=== PATIENT | male | born 1935 | race Caucasian/White ===

== ENCOUNTER 2018-10-20 08:27 | Inpatient (IN) | payer MEDICARE ==
[2018-10-20] MEDS ORDERED: Adacel (T-DAP) 0.5 ML SYRINGE ONE (08:33)
[2018-10-20] MEDS ORDERED: Acetaminophen 500 MG TAB ONE (08:42)
[2018-10-20] MEDS ORDERED: Lidocaine 1% w/Epinephrine 1:100K 20 ML VIAL ONE (08:42)
[2018-10-20 09:13] LABS: INR-International Normal Ratio 1.9; PTT 32.6 SEC (22.9-36.1); Prothrombin Time 22.2 SEC (12.0-14.7)
[2018-10-20 09:18] LABS: #Basophils 0.1 thou/uL (0.0-0.2); #Eosinphils 0.1 thou/uL (0.0-0.7); #Lymphocytes 1.2 thou/uL (1.20-3.40); #Monocytes 0.4 thou/uL (0.11-0.59); #Neutrophils 6.1 thou/uL (1.40-6.50); %Basophils 0.8 % (0.0-1.0); %Eosinophils 1.8 % (0.0-10.0); %Lymphocytes 15.4 % (21.0-51.0); %Neutrophils 77.1 % (42.0-75.0); Hemoglobin 15.8 g/dL (14.0-18.0); Mean Corpuscular HGB CONC 32.8 g/dL (32.0-36.0); Mean Corpuscular Volume 88.4 fL (78.0-98.0); Mean Platelet Volume 7.7 fL (7.4-10.4); Platelet Count 198 thou/uL (130-400); RBC Distribution Width 12.5 % (11.5-14.5); Red Blood Cell (RBC) Count 5.45 mill/uL (4.70-6.10); White Blood Cell (WBC) Count 7.9 thou/uL (4.8-10.8)
[2018-10-20 09:23] LABS: ALT (SGPT) 14 U/L (8-55); AST (SGOT) 21 U/L (5-34); Albumin 3.6 g/dL (3.4-4.8); Alkaline Phosphatase 51 U/L (40-150); Anion Gap 14 mmol/L (10-20); BUN (Urea Nitrogen) 17 mg/dL (8.4-25.7); Bilirubin, Total 1.1 mg/dL (0.2-1.2); CK (CPK) 116 U/L (30-200); Calc. Creatinine Clearance 0 mL/min (70-130); Calcium 8.9 mg/dL (7.8-10.44); Carbon Dioxide 24 mmol/L (23-31); Chloride 102 mmol/L (98-107); Estimated GFR-MDRD 86; Glucose 149 mg/dL (83-110); Potassium 4.1 mmol/L (3.5-5.1); Protein, Total 6.6 g/dL (5.8-8.1); Sodium 136 mmol/L (136-145)
--- NOTE | 2018-10-20 10:10 | CT ---
CT OF THE BRAIN WITHOUT CONTRAST: Comparison: 08-18-11 History: Dizziness, fall with head trauma. Technique: Multiple contiguous axial images were obtained in a CT of the brain without contrast. FINDINGS: There are scattered hypodensities in the subcortical and periventricular white matter, likely seconda ry to small vessel ischemic disease. No large confluent infarction is seen. There is no evidence of h ydrocephalus, intracranial hemorrhage, or extraaxial fluid collection. The calvarium and overlying soft tissues are unremarkable. The visualized paranasal sinuses and masto id air cells are well aerated. IMPRESSION: No evidence of acute intracranial abnormality. POS: [facility]
[2018-10-20] MEDS ORDERED: Ondansetron PF 4 MG/2 ML Vial IVP PRN (10:51)
[2018-10-20] MEDS ORDERED: Sodium Chloride 0.9% 1,000 ML IV SCH ×2 (10:51→23:55)
[2018-10-20] MEDS ORDERED: Dextrose 5% in Water 1,000 ML IV PRN (10:51)
[2018-10-20] MEDS ORDERED: Dextrose 50% Abboject 50 ML SYRINGE SLOW IVP PRN (10:51)
[2018-10-20] MEDS ORDERED: Ondansetron ODT 4 MG TAB PO PRN (10:51)
[2018-10-20] MEDS ORDERED: Morphine 4 MG/ML VIAL SLOW IVP PRN (10:51)
[2018-10-20] MEDS ORDERED: hydrALAZINE 20 MG/ML VIAL SLOW IVP PRN (10:51)
--- NOTE | 2018-10-20 10:51 | RAD ---
LEFT HAND 3 VIEWS: HISTORY: Injury. Pain. COMPARISON: None. FINDINGS: There is intraarticular fracture of the radial styloid. No ulnar styloid fracture is appreciated. M ild degenerative disease of the thumb carpometacarpal joint as well as the scaphotrapezium trapezoida l joint. There is a mildly comminuted intraarticular fracture of the base of the 5th metacarpal. There is adj acent soft tissue swelling. Possible fracture of the hamate, although this is not well seen. There is ossification of the triangular fibrocartilage. Obliquely oriented fracture, intraarticular, of the middle finger metacarpal base. IMPRESSION: 1. Intraarticular fracture of the radial styloid without significant displacement. 2. Intraarticular fracture of the base of the small finger metacarpal at the carpometacarpal joint w ith possible nondisplaced fracture of the medial margin of the hamate. 3. Obliquely oriented intraarticular nondisplaced fracture of the metacarpal base middle finger. POS: [facility]
--- NOTE | 2018-10-20 10:56 | CT ---
CHEST, ABDOMEN, AND PELVIC CT SCAN WITH IV CONTRAST THORACIC SPINE CT SCAN WITH IV CONTRAST LIMITED LUMBAR SPINE CT SCAN WITH IV CONTRAST LIMITED: History: 83-year-old male with history of chest injury from a fall. FINDINGS: CT CHEST/ABDOMEN/PELVIS WITH IV CONTRAST: There are numerous healed left rib fractures with extensive associated deformity. There is some scatt ered linear and interstitial increased markings noted bilaterally, particularly in the mid and lower lung zones, nonspecific, possibly representing some chronic change or some subsegmental atelectasis o r be related to some dependent positioning. There is motion artifact through this region which lowers the sensitivity of this study. There is no evidence for pneumothorax or significant pleural effusion or pericardial effusion. Visualized liver, gallbladder, pancreas, spleen, adrenal glands are unremar kable and show no acute process. 6.8 cm right renal cyst. No free intraperitoneal fluid or evidence f or retroperitoneal hematoma. Very small fat containing umbilical hernia and bilateral small fat conta ining inguinal hernias. There is some slight heterogeneous urinary bladder wall thickening with a foc al nodular area of enhancement at the anterior dome of the liver, possibly a small bladder neoplasm. Colonic diverticulosis without acute diverticulitis. IMPRESSION: No significant acute post-traumatic process involving the chest, abdomen, or pelvis. Evidence for pos sible small enhancing bladder wall mass, follow up nonemergent cystoscopy in this regard should be co nsidered. Other findings as above. THORACIC SPINE CT SCAN WITH IV CONTRAST LIMITED: FINDINGS/IMPRESSION: Extensive thoracic spondylosis without acute fracture or dislocation. LUMBAR SPINE CT SCAN WITH IV CONTRAST LIMITED: FINDINGS/IMPRESSION: Lumbar spondylosis without acute fracture or dislocation. POS: [facility]
[2018-10-20] MEDS ORDERED: Morphine 2 MG/ML SYRINGE SLOW IVP PRN (12:42)
[2018-10-20 12:59] VITALS: BMI 31.1
--- NOTE | 2018-10-20 13:53 | CT ---
NONCONTRAST CT LEFT WRIST: 10/20/18 HISTORY: Injury after fall. Radiographic evaluation demonstrates fractures. FINDINGS: There is a minimally fracture involving the most distal aspect of the radial styloid proces s. There is a subtle nondisplaced fracture involving the mid and distal trapezium bone. There is also a subtle lucency involving the lateral aspect of the hamate bone suggesting a nondisplaced fracture. Th ere is tiny osseous fragments seen adjacent to the distal and lateral margin of the capitate bone con sistent with small fracture fragments and fracture of the capitate bone. A non-displaced fracture of the lunate bone is seen. There is a slightly displaced fracture involving the lateral aspect of the trapezoid bone. There is s light irregularity of the trapezium, but definitive fracture is difficult to delineate. There is a sl ightly intra-articular fracture involving the lateral aspect base of the fifth metacarpal a s well as a obliquely oriented and slightly fracture involving the base of the middle metac arpal with intra-articular extension and slight intra-articular gap and step-off of the fracture frag ment. There is subcutaneous edema about the wrist. Calcifications in the region of the triangular fibrocart ilage with calcifications also in the region of the scapholunate ligament. There is a subtle nondisplaced fracture of the lunate bone. IMPRESSION: 1. There is a slightly and displaced fracture of the radial styloid process. 2. Fractures involving multiple carpal bones including the trapezium, hamate, capitate, trapezoi d, lunate and questionably subtle fracture involving the trapezium bones. 3. Intra-articular fractures involving the base of the third and fifth metacarpals with intra-ar ticular extension of the fractures. 4. Calcifications in region of the triangular fibrocartilage and region of the scapholunate liga ment. 5. Subcutaneous edema. 6. Questionable tiny avulsion fracture at the lateral aspect base of the fourth metacarpal. 7. Above findings discussed with Dr. Delgado in the Emergency Department on 10/20/18 at 1118 ho urs. POS: [facility]
[2018-10-20] MEDS ORDERED: Acetaminophen 500 MG TAB PO PRN (13:54)
[2018-10-20] MEDS ORDERED: HYDROcodone/Acetaminophen 5/325 mg Tablet PO PRN ×2 (13:57)
--- NOTE | 2018-10-20 14:47 | HP ---
CONSULTATIONS: Hand Surgery, Dr. Martin. PRIMARY CARE PROVIDER: Dr. Rupert Rosales. HISTORY OF PRESENT ILLNESS: The patient is an 83-year-old man, who reportedly takes walks daily between a mile and a mild and a half, who states that lately he has become "more wobbly" towards the end of his walks. Today, when he was finishing his walks, he became unsteady and fell landing on his left outstretched hand and struck his head on the ground. The patient was brought to the emergency department at [facility], where he underwent evaluation and examination to include CT scans that revealed fractures to his left distal radius carpals and metacarpals. The patient's head CT was negative and the remainder of his scans were negative. There was a question of whether this was a syncopal event and we will ask his primary care provider to assist in evaluating this. ALLERGIES: NONE. CURRENT MEDICATIONS: 1. Xarelto. 2. Digoxin. 3. Carvedilol. 4. COQ10. 5. Hydrochlorothiazide. 6. Fish oil. PAST MEDICAL HISTORY: Atrial fibrillation, hypertension, and alcohol-induced cardiomyopathy. PAST SURGICAL HISTORY: None. SOCIAL HISTORY: The patient denies drug or tobacco use. Prior to 2011, he had extensive alcohol history, but has none since. Currently, lives independently at home. PHYSICAL EXAMINATION: VITAL SIGNS: Blood pressure 154/89, heart rate 84, respirations 18, oxygen saturation 92% on room air, and temperature is 97.9. GENERAL: The patient is resting comfortably in the bed on the stroke unit. He is awake, alert, and oriented x3. [place] Coma Scale is 15. HEENT: Head, normocephalic. The patient has a laceration that has been repaired above his left eyebrow. Eyes, extraocular motion intact. PERRLA bilaterally. Ears are atraumatic without discharge. Nose is atraumatic without discharge. Oropharynx is clear. NECK: Nontender. Trachea is midline. No JVD. CHEST: Clear to auscultation with good inspiratory and expiratory effort. HEART: Irregularly irregular consistent with his atrial fibrillation. ABDOMEN: Soft, flat, nontender with active bowel sounds. PELVIS: Stable. EXTREMITIES: Neurovascularly intact x4. Left upper extremity has a volar splint placed. Capillary refill, distal movement, and sensation are intact. BACK: Atraumatic and nontender. LABORATORY FINDINGS: White blood cell count 7.9, hemoglobin 15.8, hematocrit 48.2, and platelets 198. Sodium 136, potassium 4.1, chloride 102, CO2 of 24, BUN 17, creatinine 0.82, and glucose 149. LFTs are unremarkable. Cardiac enzymes are unremarkable. PT 22, INR 1.9, and PTT 32. RADIOGRAPHIC FINDINGS: CT of the brain without contrast shows no evidence of acute intracranial abnormality. CT of the chest, abdomen, and pelvis with IV contrast shows no significant acute posttraumatic process involving the chest, abdomen, or pelvis. Radiograph of the left hand shows an intra-articular fracture of the radial styloid without significant displacement. Intra-articular fracture of the base of the small finger metacarpal at the carpometacarpal joint with a possible nondisplaced fracture of the medial margin of the hamate and obliquely oriented intra-articular nondisplaced fracture of the metacarpal base of the middle finger. CT of the left wrist shows the same in greater detail. ASSESSMENT: 1. Status post ground-level fall. 2. Laceration to left eyebrow. 3. Left distal radius styloid fracture. 4. Multiple carpal fractures. 5. Multiple metacarpal fractures. 6. History of atrial fibrillation. 7. History of hypertension. 8. History of alcohol-induced cardiomyopathy. PLAN: Plan will be to admit the patient to a monitored bed for evaluation of possible syncope. We will consult with his primary care provider, Dr. Rosales, in this regards. The patient will have his Xarelto held to likely undergo percutaneous pinning of his hand fractures by Dr. Martin tomorrow. The patient will have pain control, pulmonary toilet, gastritis, mechanical VTE prophylaxis. The evaluation, examination, laboratory, and radiographic findings will be discussed with Dr. Garcia after this dictation. Job ID: [id number]
[2018-10-20] MEDS ORDERED: Meperidine HCl/PF 25 MG/ML VIAL IM PRN (15:00)
[2018-10-20] MEDS ORDERED: Morphine 2 MG/ML SYRINGE SLOW IVP SCH (15:15)
[2018-10-20 16:51] LABS: Digoxin 1.05 ng/mL (0.8-2.0)
--- NOTE | 2018-10-20 19:26 | CT ---
NONCONTRAST CT LEFT WRIST: 10/20/2018 HISTORY: Post reduction and splinting. COMPARISON: 10/20/2018 at 10:47 hours. FINDINGS: Splint material now overlies the distal forearm, wrist, and hand. Previously described fracture involving the radial styloid process is again seen and is minimally com minuted. A fracture involving the radial aspect, base of the right fifth metacarpal is present. On prior exam , this was thought to extend into the carpometacarpal joint, but this does not appear to extend into the carpometacarpal joint. There is a stable, obliquely oriented fracture involving the base of the middle metacarpal, which winters s demonstrate intraarticular extension, and alignment of this fracture is stable. There is slight se paration of fracture fragments. There is osteopenia, which does limit evaluation for subtle fractures, but there are tiny avulsion in juries again seen involving the ulnar aspect of the distal capitate bone, with a questionable tiny av ulsion injury seen at the ulnar aspect of the base of the fourth metacarpal. Better osseous detail is obtained with current imaging, as opposed to the prior study, and the previo usly questioned fractures involving the carpal bones are not definitively visualized, and findings ma y have been related to the trabecular pattern on the prior study, and obvious displaced fractures are not visualized. No definite additional displaced fracture is seen involving the remaining carpal travis irvin as questioned on the prior exam. Subcutaneous edema is seen about the wrist. IMPRESSION: 1. Overall stable fractures with stable alignment of fractures involving the base of the third and f ifth metacarpals. 2. Stable fracture, radial styloid process. 3. Tiny avulsion injury involving the capitate bone. 4. Calcifications of the scapholunate ligament and triangular fibrocartilage. POS: [facility]
[2018-10-20] MEDS ORDERED: DorzolamidE/Timolol 2%/0.5% Ophth Soln 10 ml Bottle EA EYE SCH (21:00)
[2018-10-20] MEDS: Famotidine 20 MG TAB PO SCH (21:35)
[2018-10-21 05:25] LABS: #Eosinphils 0.1 thou/uL (0.0-0.7); #Lymphocytes 1.6 thou/uL (1.20-3.40); #Monocytes 0.7 thou/uL (0.11-0.59); #Neutrophils 5.7 thou/uL (1.40-6.50); %Basophils 0.3 % (0.0-1.0); %Eosinophils 1.7 % (0.0-10.0); %Lymphocytes 19.5 % (21.0-51.0); %Monocytes 8.9 % (0.0-10.0); %Neutrophils 69.6 % (42.0-75.0); Mean Corpuscular HGB CONC 34.4 g/dL (32.0-36.0); Mean Corpuscular Hemoglobin 31.3 pg (27.0-31.0); Mean Corpuscular Volume 90.8 fL (78.0-98.0); Mean Platelet Volume 7.3 fL (7.4-10.4); Platelet Count 194 thou/uL (130-400); RBC Distribution Width 13.1 % (11.5-14.5); Red Blood Cell (RBC) Count 4.81 mill/uL (4.70-6.10); White Blood Cell (WBC) Count 8.2 thou/uL (4.8-10.8)
[2018-10-21 05:41] LABS: Anion Gap 11 mmol/L (10-20); BUN (Urea Nitrogen) 17 mg/dL (8.4-25.7); Calc. Creatinine Clearance 106 mL/min (70-130); Calcium 8.5 mg/dL (7.8-10.44); Carbon Dioxide 27 mmol/L (23-31); Chloride 101 mmol/L (98-107); Estimated GFR-MDRD Greater than 90; Glucose 104 mg/dL (83-110); Potassium 3.3 mmol/L (3.5-5.1); Sodium 136 mmol/L (136-145)
[2018-10-21 07:49] VITALS: BP 160/80; TEMP 98.1
[2018-10-21] MEDS: Famotidine 20 MG TAB PO SCH (08:34)
[2018-10-21] MEDS ORDERED: Fish Oil 1,000 MG CAP PO SCH (09:00)
[2018-10-21] MEDS ORDERED: Timolol 0.5% Ophth Soln 5 ml Bottle EA EYE SCH (09:00)
[2018-10-21] MEDS ORDERED: Hydrochlorothiazide 25 MG TAB PO SCH (09:00)
[2018-10-21] MEDS ORDERED: Ubidecarenone 50 MG CAP PO SCH (09:00)
[2018-10-21] MEDS ORDERED: Carvedilol 25 MG TAB PO SCH (09:00)
[2018-10-21] MEDS ORDERED: Digoxin 0.25 MG TAB PO SCH (09:00)
--- NOTE | 2018-10-21 09:46 | ULT ---
BILATERAL CAROTID DUPLEX ULTRASOUND WITH SPECTRAL ANALYSIS AND COLOR FLOW EVALUATION: DATE: 10/21/2018. HISTORY: Syncope. FINDINGS: [place] scale, color flow, Doppler evaluation, and spectral analysis of the bilateral carotid arteries i s performed with 2D imaging. Calcified atherosclerotic plaque is seen within the internal carotid ar teries bilaterally with shadowing atherosclerotic plaque in the region of the right carotid bulb and proximal right internal carotid artery which limits evaluation of the lumen in this region. There is less than 50% maximal stenosis in the bilateral internal carotid arteries based on peak syst olic velocities and ICA/CCA ratios. The peak systolic velocity in the right ICA is 68.4 cm/s with an ICA/CCA ratio of 0.68. Peak systolic velocity in the left ICA is 57 cm/s with an ICA/CCA ratio of 0 .95. There is an elevated peak systolic velocity in the left external carotid artery suggesting significan t stenosis. Antegrade flow is demonstrated in the left vertebral artery. Flow was unable to be detected in the r egion of the right vertebral artery, and the right vertebral artery may be occluded or very small in size. IMPRESSION: 1. No hemodynamically significant stenosis in the bilateral internal carotid arteries. However, the re is calcified atherosclerotic plaque in the proximal internal carotid arteries bilaterally which do es obscure a portion of the lumen involving the right internal carotid artery and more significant st enosis at this level could not be entirely excluded. 2. Nonvisualization of the right vertebral artery, and occlusion or very small caliber of the vessel is a possibility. POS: [facility]
[2018-10-21] MEDS ORDERED: traMADol HCl 50 MG TAB PO PRN ×2 (09:48)
--- NOTE | 2018-10-21 14:09 | CON ---
DATE OF CONSULTATION: REASON FOR CONSULTATION: Weakness, unsteadiness and previous history of chronic atrial fibrillation. HISTORY OF PRESENT ILLNESS: Mr. Yin is an 83-year-old gentleman who has been seen and evaluated by Dr. Ranjan Puri. He has not been seen in over five years. He has a history of chronic atrial fibrillation in addition to alcohol abuse. He is currently on Xarelto. He states he recently took his normal walk. He became wobbly and unsteady. He then fell. He denies syncope, presyncope, or loss of consciousness. He does have a history of increase in unsteadiness noted upon standing and at the end of his walk. Etiology from that standpoint is unknown. No chest pain, pressure, or associated symptoms are present. CURRENT MEDICATIONS: Include, 1. Atenolol. 2. Carvedilol. 3. Fish oil. 4. Co-Q10. 5. Hydrochlorothiazide. 6. Xarelto. 7. Digoxin. ALLERGIES: NONE. PAST MEDICAL HISTORY: Previous pneumothorax, hypertension. SURGICAL HISTORY: None. SOCIAL HISTORY: No current tobacco or alcohol use. REVIEW OF SYSTEMS: A 10-point review of systems is reviewed and as above, otherwise negative. PHYSICAL EXAMINATION: GENERAL: Patient is a pleasant gentleman who is in no acute distress. The patient appears their stated age. VITAL SIGNS: Blood pressure 169/102, pulse 88, temperature afebrile. NEUROLOGIC: The patient is alert and oriented x3 with no focal neurologic deficits. HEENT: Sclerae without icterus. Mouth has moist mucous membranes with normal pallor. NECK: No JVD. Carotid upstroke brisk. No bruits bilaterally. LUNGS: Clear to auscultation with unlabored respirations. BACK: No scoliosis or kyphosis. CARDIAC: Irregular regular rate and rhythm with normal S1 and S2. No S3 or S4 noted. No significant rubs, murmurs, thrills, or gallops noted throughout the precordium. PMI is not displaced. There is no parasternal heave. ABDOMEN: Soft, nontender, nondistended. No peritoneal signs present. No hepatosplenomegaly. No abnormal striae. EXTREMITIES: 2+ femoral and 2+ dorsalis pedis pulses. No cyanosis, clubbing, or edema. Left hand with fracture present. SKIN: No gross abnormalities. LABORATORY DATA: Hemoglobin 15.8, creatinine 0.85. IMPRESSION: 1. Weakness and unsteadiness. 2. Recent fall. 3. Chronic atrial fibrillation. RECOMMENDATIONS: From a Cardiovascular standpoint, Mr. Yin did not have a recent syncopal episode. There is no dysrhythmia at this point to blame for his current demise. The etiology for his unsteadiness is unknown. Would likely recommend a 3-week outpatient event recorder to assess for significant dysrhythmias. I have also asked him to take his blood pressure on a regular basis and when he has his episode, to see if it correlates with hypotension. It appears due to his fracture to his left hand, it will be pinned and will not require anesthesia. Recommendations on stopping Xarelto will be left at the discretion of the surgeon. We will resume when surgeon feels safe on resumption. Job ID: [id number]
--- NOTE | 2018-10-21 15:11 | HP ---
ATTENDING PHYSICIAN: Trauma Service. COVERING PHYSICIAN: Dr. Rupert Rosales. HISTORY OF PRESENT ILLNESS: The patient is an 83-year-old male, well known to me, he has a history of chronic atrial fibrillation that has been well controlled in the past. 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 He notes that he has been walking daily, although his family notes he has become little bit more wobbly during his daily walk that he has to rest a little bit more in between during his walk more lightheaded. Today, while walking, he stated he stumbled and fell. It was originally reported to me that the patient suffered a syncopal event, but the patient vigorously denies suffering a syncopal event. Family states the patient also vigorously denies suffering a syncopal event. He states he simply tripped, fell, protected himself and suffered a fracture to his hand. He was seen and evaluated in the emergency room. CT scan of the chest, abdomen, and pelvis was otherwise unremarkable. CT scan of the brain was otherwise unremarkable. Hand x-ray did reveal multiple fractures of his hand. He has since undergone CT scan of the extremity, which had revealed fracture of the radial styloid process as well as multiple carpal bone fractures as well as fracture of the third and fifth metacarpals. The patient otherwise states he is feeling fine. He notes no chest pain. He notes that he does get more wobbly the further that he walks. He does not note any nausea, vomiting, or diarrhea. As noted, he has a long history of chronic atrial fibrillation that is well controlled. He has not noted any fever. He does have previous history of alcohol use, but adamantly denies any further alcohol use or abuse at this time no other medical complaints otherwise noted. Otherwise, he states he is feeling fairly normal and fairly well otherwise except for the pain into his hand and bruise to his left upper eyebrow. ALLERGIES: HE HAS NO KNOWN ALLERGIES. CURRENT MEDICATIONS: 1. Fish oil. 2. Hydrochlorothiazide. 3. CoQ10. 4. Digoxin. 5. Carvedilol. 6. Xarelto for chronic atrial fibrillation. PAST MEDICAL HISTORY: Positive for chronic atrial fibrillation; hypertension; cardiomyopathy, probably induced by previous alcohol use, for which he states he is no longer using alcohol. PAST SURGICAL HISTORY: Negative at this time. SOCIAL AND PERSONAL HISTORY: He does not drink nor does he smoke. He states he has stopped drinking alcohol and currently lives independently at home. He is a . REVIEW OF SYSTEMS: GI: Negative. : Negative. CARDIOVASCULAR: Positive as above. RESPIRATORY: Positive as above. PHYSICAL EXAMINATION: VITAL SIGNS: Temperature 98.3, pulse 109 , respirations 18, O2 sats 93%, blood pressure 159/87. GENERAL: He appears to be alert, active, in no acute distress. HEENT: There is bruising about the left eyebrow and left periorbital area. The extraocular muscles are intact. NECK: Supple. Full range of motion. No masses. LUNGS: Reveal bilateral breath sounds. HEART: Reveals rhythm without murmur, gallops, or rubs. ABDOMEN: Soft, nontender. Bowel sounds are present and active. No hepatosplenomegaly is noted. EXTREMITIES: The left arm is currently placed in a splint with an Arnoldo wrap. There is no evidence of any skin lesions. NEUROLOGIC: He is alert and oriented x3. He is able to move all extremities. He follows commands well. LABORATORY DATA: His hemoglobin is 15.8, hematocrit 48.2, white blood count 7.9. PT and INR normal. Electrolyte profile; sodium 146, potassium 4.1, chloride 102, CO2 24, BUN 17, creatinine 0.85, glucose 149. Troponin is less than 0.1. IMPRESSION: 1. This is an 83-year-old male with chronic atrial fibrillation, who suffered an apparent fall without loss of consciousness at this time per patient's report. He has also suffered fractures involving his left hand and wrist. 2. Chronic atrial fibrillation. 3. Cardiomyopathy. PLAN: If the patient has suffered syncopal event, we will go ahead and evaluate this with carotid Doppler ultrasound. I have also requested Cardiology consult. Most likely, he will get the echocardiogram. I will leave that up to Cardiology. Otherwise, no other workup is necessary. If he needs surgical intervention with his fractures, his Xarelto would have been held or need to be held for at least 48 hours prior to surgery and probably at least 5 to 7 days post surgery. If no surgery is anticipated, Xarelto could be restarted. If he needs further surgery, I would leave that to Orthopedics to decide. He may remain in the hospital depending on their recommendations for surgery. Otherwise, we will go ahead and get a carotid Doppler ultrasound. We will also check digoxin level. We will hold Xarelto maintaining current medications. Await Cardiology consultation. I have discussed the findings with the family and the patient. They verbalized understanding and the need for further input from Orthopedic Services. I have discussed this case also with the PA, Quinten Sterling, for the Trauma Service. If I can be of further assistance, certainly will help. Job ID: [id number]
--- NOTE | 2018-10-21 15:25 | CON ---
DATE OF CONSULTATION: CHIEF COMPLAINT: Left wrist pain. HISTORY: The patient reports being involved in an accident with a fall where he sustained facial lacerations, facial contusion, no true documented loss of consciousness, and complained of left wrist pain. He was evaluated at [facility] [place] and we were called because once facial laceration was taken care of, it was felt by the emergency room doctor to be a Trauma 2 type admission with observation needed because he is on anticoagulation, already has swelling, ecchymosis at the wrist, despite the fact that he showed only minimally displaced fracture. He was here after showing at least 3 fractures and possibly 4 hamate fractures on plain films and reconfirmation of the CT pending. He reports no numbness and tingling. No prior injury. 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 PAST MEDICAL HISTORY: He reports that he has a past medical history of arrhythmia for which he is treated with Xarelto. Even now, almost 6 hours after the injury, he denies numbness and tingling. PAST SURGICAL HISTORY: Noncontributory. PHYSICAL EXAMINATION: The patient is awake, alert, oriented x3. He has at least 7 stitches in the left periorbital region just lateral to the center of the eyelid. His cranial nerves are intact 2 through 12. His ecchymosis around the periorbital region on the left mandible area is without true tenderness or loss of motion or pain with opening of the mouth to receive nourishment. Cervical spine negative. Trachea midline. Respiratory rate is 22. There is no evidence of stretch pain, but he has marked ecchymosis and moderate edema over the dorsal hand that is seen on the palmar aspect with changes of the skin complete with a arndt-white area of ecchymosis from the Xarelto. He has no gross malrotation in the digits, point tenderness is seen in the left side in the center portion, ring finger is seen in the proximal proximal phalanx and metacarpal head. No effusion or instability. No malrotation is seen. The long finger and index finger shows marked third metacarpal base tenderness, none over the capitate. The hamate itself is negative. Snuffbox is mildly tender. The distal radius shows a small 3.5 mm fragment that is less than 1 mm displaced and perhaps mildly angulated. The radiograph assessment is listed above. ASSESSMENT AND RECOMMENDATIONS: Multiple small ring and small finger metacarpal fractures with the small finger displaced without evidence of at the carpometacarpal joint and a wound at the small finger region, but superficial with no bony abnormalities I will recommend the patient to undergo observation for neurological type protocol and we will obtain a CT scan if that is negative. There is no true evidence of in a negative fashion. I placed the patient today after giving him some Demerol and morphine in a 30 degree dorsiflexion with the MP joint of the small finger, ring finger, long finger at nearly 90 degrees and the wrist at nearly 35 degree dorsiflexion. If these show the position of fracture to be as good as or slightly better than pronounced and this was all accomplished. We then placed him in a thumb spica, because of the radial styloid fracture splint which went around to meet the other splint over the palm and a 30 degree dorsiflexed wrist with a small 60 degrees of palmar flexion. We will obtain a CT scan if it shows improvement whatsoever fracture, but still displaced, we will then prepare for nonoperative care. Job ID: [id number]
--- NOTE | 2018-10-22 01:37 | OP ---
DATE OF PROCEDURE: 10/20/2018 PREOPERATIVE DIAGNOSES: 1. Displaced right 5th metacarpal base fracture, small finger. 2. Nondisplaced third/middle finger metacarpal base fracture, nondisplaced hamate fracture, nondisplaced capitate fracture, , radial styloid fracture. PROCEDURES PERFORMED: 1. Closed reduction with short-arm static splint application, left small finger metacarpal fracture. 2. Closed treatment, capitate fracture with splint application. 3. Closed treatment of radial styloid fracture with splint application. 4. Closed treatment of hamate fracture, left with application of a dynamic splint. 5. Closed treatment, third metacarpal fracture base. FINDINGS: Postprocedural CT scan revealed excellent position without displacement of the fracture all joints involved. ANESTHESIA: Marcaine 2 mg IV and Demerol 25 mg IM at bedside. DESCRIPTION OF PROCEDURE: After successful anesthesia listed above and after explaining procedure to the patient, appropriate consent, the patient underwent a splint application with a well-formed palmar ulnar gutter and dorsal ulnar gutter splint and a thumb spica splint, which met in the midline after padded it with two layers of cast padding, protecting the thumb as well, the splint was well molded with the wrist at 35 degrees of dorsiflexion and the MP joint at 60 degrees of flexion, small finger and ring finger. It was well padded, after which he did not have any acute increase in swelling as he is already very ecchymotic, edematous, on systemic anticoagulant. The patient then had the splint evaluated, underwent a postprocedural CT scan, which showed that the small finger fracture was no longer displaced, although intra-articular nondisplaced with no step-off at this point. The metacarpal fracture of the base of the third remained nondisplaced. Joint was congruent. Capitate has small fracture avulsion, which was congruent. The radial styloid fracture and the hamate fractures were small avulsions and they remained stable and without displacement. RECOMMENDATION: He will be discharged with a splint, follow up with us in 10 days for casting, and postcasting x-rays. Not operative candidate at this time. Job ID: [id number]
--- NOTE | 2018-10-23 11:32 | DIS ---
DATE OF ADMISSION: 10/20/2018 DATE OF DISCHARGE: 10/21/2018 ADMISSION DIAGNOSES: 1. Status post ground-level fall. 2. Laceration to left eyebrow. 3. Left distal radius styloid fracture. 4. Multiple carpal fractures. 5. Multiple left metacarpal fractures. 6. History of atrial fibrillation. 7. History of hypertension. 8. History of alcohol-induced cardiomyopathy. CONSULTATIONS: Cardiology, Dr. Simmons. PRIMARY CARE PROVIDER: Dr. Rosales. SUMMARY: The patient is an 83-year-old man, who reportedly walks one to one and half miles per day and today which he has had not previously. The patient became "wobbly" at the end of his walk causing him to stumble and fall on his outstretched hand on the left. The patient had immediate pain to his left wrist and also struck his face on the ground. He was taken by POV to the Emergency Department at [facility] where he underwent evaluation and examination. It was felt that he had a syncopal episode and he was transferred to our facility for evaluation and Orthopedic evaluation also. The patient was evaluated by his primary care provider and Dr. Simmons, who felt that this was not a syncopal episode. He underwent the appropriate studies and lab tests, and again this was felt to be non-syncopal. The patient was evaluated by Dr. Martin for his carpal and metacarpal fracture and Dr. Martin performed a closed reduction and splinting on the patient and he was able to be discharged home. At time of discharge, the patient was tolerating a diet. His pain was controlled and is ambulating without assistance. He will follow up with Dr. Martin in [address] Rosales this week. Job ID: [id number]
== END 2018-10-21 11:42 | disposition home or self-care (01) | DRG 563 ==
LOC: SCSER 08:27 → 2SE 10:51
PROVIDERS: ADMIT Surgery; ATTEND Surgery
PROC: 0PSQXZZ Reposition Left Metacarpal, External Approach (ICD-10-PCS; principal; 2018-10-20)
DX: S52.512A Displaced fracture of left radial styloid process, initial encounter for closed fracture (principal); I42.9 Cardiomyopathy, unspecified; S62.172A Displaced fracture of trapezium [larger multangular], left wrist, initial encounter for closed fracture; S62.142A Displaced fracture of body of hamate [unciform] bone, left wrist, initial encounter for closed fracture; S62.132A Displaced fracture of capitate [os magnum] bone, left wrist, initial encounter for closed fracture; S62.182A Displaced fracture of trapezoid [smaller multangular], left wrist, initial encounter for closed fracture; S62.122A Displaced fracture of lunate [semilunar], left wrist, initial encounter for closed fracture; S62.313A Displaced fracture of base of third metacarpal bone, left hand, initial encounter for closed fracture; S62.317A Displaced fracture of base of fifth metacarpal bone, left hand, initial encounter for closed fracture; S01.112A Laceration without foreign body of left eyelid and periocular area, initial encounter; W01.0XXA Fall on same level from slipping, tripping and stumbling without subsequent striking against object, initial encounter; Y93.9 Activity, unspecified; Y92.9 Unspecified place or not applicable; Y99.9 Unspecified external cause status; I48.91 Unspecified atrial fibrillation; I10 Essential (primary) hypertension; I48.2 Chronic atrial fibrillation; Z79.01 Long term (current) use of anticoagulants
CPT/HCPCS: 12013; 29125; 36415; 36416; 70450; 71260; 74177; 80048; 80053; 80162; 82550; 84484; 85025; 85610; 85730; 90471; 90715; 93005; 93880; G8978-GP-CJ; G8979-GP-CJ; G8980-GP-CJ; J2001; J2175; J2270

== ENCOUNTER 2018-10-23 09:37 | Emergency (ER) | payer MEDICARE ==
[2018-10-23] MEDS ORDERED: Ketorolac Tromethamine 30 MG/ML VIAL ONE (09:59)
--- NOTE | 2018-10-23 10:54 | CT ---
CT CERVICAL SPINE NONCONTRAST: HISTORY: Fall. Neck injury. FINDINGS: Vertebral body height and alignment are maintained. Bulky osteophytosis is present throughout the ve rtebral bodies and facets. Multilevel sever central canal and foraminal stenoses. No acute fracture or dislocation. Cervicothoracic junction is intact. Prominent calcification throughout the arteria l structures. IMPRESSION: 1. Prominent degenerative changes cervical spine. No acute osseous abnormalities are demonstrated. 2. Atherosclerosis. POS: VONNIE
== END 2018-10-23 10:36 | disposition home or self-care (01) ==
LOC: SCSER 09:37
DX: S16.1XXA Strain of muscle, fascia and tendon at neck level, initial encounter (principal); J44.1 Chronic obstructive pulmonary disease with (acute) exacerbation; I10 Essential (primary) hypertension; I48.91 Unspecified atrial fibrillation; Z79.01 Long term (current) use of anticoagulants; Z79.899 Other long term (current) drug therapy; Z79.891 Long term (current) use of opiate analgesic; W19.XXXA Unspecified fall, initial encounter
CPT/HCPCS: 72125; 96372; J1885

== ENCOUNTER 2019-05-20 11:53 | Emergency (ER) | payer MEDICARE ==
--- NOTE | 2019-05-20 12:38 | RAD ---
AP PELVIS: Date: 05/20/19 HISTORY: Left hip pain. FINDINGS/IMPRESSION: There are degenerative changes in the hip joints bilaterally. Postop changes are noted in the pelvis. No acute fracture, dislocation, or bony destruction identified. POS: VONNIE
--- NOTE | 2019-05-20 12:39 | RAD ---
LEFT HIP 2 VIEWS: Date: 05/20/19 HISTORY: Left hip pain. FINDINGS/IMPRESSION: Degenerative changes are seen. No fracture, dislocation, or bony destruction identified. There are po stop changes in the pelvis. POS: VONNIE
== END 2019-05-20 12:54 | disposition home or self-care (01) ==
LOC: SCSER 11:53
DX: M16.12 Unilateral primary osteoarthritis, left hip (principal); I48.91 Unspecified atrial fibrillation; I10 Essential (primary) hypertension
CPT/HCPCS: 72170